=== PATIENT | male | born 1950 | race Hispanic/Latino ===

== ENCOUNTER 2019-03-16 06:35 | Day surgery (SDC) | payer OTHER ==
[2019-03-12 10:36] VITALS: BP 177/89
[2019-03-12 10:40] LABS: BASOPHILS % (AUTO) 0.7 % (0.0-5.0); EOSINOPHILS % (AUTO) 1.5 % (0.0-8.0); HEMATOCRIT 40.7 % (42-54); LYMPHOCYTES % (AUTO) 22.9 % (21.0-51.0); MEAN CORPUSCULAR HEMOGLOBIN 30.8 pg (27.0-33.0); MEAN CORPUSCULAR VOLUME 90.6 fL (79-99); MONOCYTES % (AUTO) 9.6 % (3.0-13.0); NEUTROPHILS % (AUTO) 65.3 % (40.0-77.0); PLATELET COUNT (AUTO) 210 K/uL (130-400); RED BLOOD CELL COUNT(AUTO) 4.49 MIL/uL (4.50-6.20); RED CELL DISTRIBUTION WIDTH 14.1 % (11.0-15.5); WHITE BLOOD COUNT (AUTO) 6.9 K/uL (4.8-10.8)
[2019-03-12 10:46] LABS: CREATININE 0.9 mg/dL (0.5-1.5); POTASSIUM 3.8 mmol/L (3.5-5.1)
[2019-03-16] VITALS (23 sets, daily range): BP systolic 139–238; BP diastolic 62–120
[~2019-03-16] VITALS: Ht 177.8 cm; Wt 141.5 kg
[~2019-03-16 06:35] MED LIST: AEC81 PO; CHLO25TA3 PO; DILT240C50 PO; EMPA25TA PO; ENZA40CA PO; FISH1CAP27 PO; INSU100I35 SQ; LOSA100T58 PO; METF-444 PO; NAPR-1192 PO; NITR0.4T50 SL; PRAV40TA3 PO; RANI150T7 PO; TERA5CAP4 PO; VICTOZA SQ
[2019-03-16] MEDS ORDERED: SODIUM CHLORIDE 0.9% 1000ML 1,000 ML IV ONE (07:19)
[2019-03-16] MEDS: CEFAZOLIN SODIUM 1 GM VIAL ONE ×2 (07:22→09:20)
--- NOTE | 2019-03-16 07:38 | NUR ---
POTENTIAL FOR INFECTION: SHAVED BACK OF LOWER HEAD / NECK PER NAHOMY HURTADO.
[2019-03-16] MEDS ORDERED: CEFAZOLIN 3GM /D5W 100ML 100 ML IV PRN (08:00)
[2019-03-16] MEDS ORDERED: GLYCOPYRROLATE 1 MG/5 ML SYRINGE ONE (09:09)
[2019-03-16] MEDS ORDERED: ONDANSETRON HCL 4 MG/2 ML VIAL ONE (09:09)
[2019-03-16] MEDS ORDERED: NEOSTIGMINE 5MG/5ML SYR IV ONE (09:09)
[2019-03-16] MEDS ORDERED: MIDAZOLAM HCL 1 MG/ML 2ML VIAL ONE (09:09)
[2019-03-16] MEDS ORDERED: PROPOFOL 10 MG/ML 20ML VIAL IV ONE (09:09)
[2019-03-16] MEDS ORDERED: LIDOCAINE PF 2% 5ML ABBOJECT ONE (09:09)
[2019-03-16] MEDS ORDERED: SUCCINYLCHOLINE 200MG/10ML SYR ONE (09:09)
[2019-03-16] MEDS ORDERED: DEXAMETHASONE SOD PHOSPHATE 10MG/ML 1ML VIAL ONE (09:09)
[2019-03-16] MEDS ORDERED: FENTANYL CITRATE PF 50 MCG/1 ML 2ML VIAL ONE (09:09)
[2019-03-16] MEDS ORDERED: ROCURONIUM 10MG/1ML SYR 10 MG/ML ML ONE (09:10)
[2019-03-16] MEDS ORDERED: BUPIVACAINE/PF 0.5% 30ML VIAL ONE (10:07)
[2019-03-16] MEDS ORDERED: LABETALOL HCL 5 MG/ML 20ML VIAL IV ONE (10:52)
[2019-03-16] MEDS ORDERED: RACEPINEPHRINE HCL 2.25% 0.5 ML NEB SOLN ONE (11:19)
[2019-03-16] MEDS ORDERED: IPRATROPIUM/ALBUTEROL SULFATE 3 ML SOLUTION IH ONE (11:46)
== END 2019-03-16 13:11 | disposition home or self-care (01) ==
LOC: DAH 06:35
PROVIDERS: ATTEND Surgery
DX: D17.0 Benign lipomatous neoplasm of skin and subcutaneous tissue of head, face and neck (principal); E11.9 Type 2 diabetes mellitus without complications; I10 Essential (primary) hypertension; I25.10 Atherosclerotic heart disease of native coronary artery without angina pectoris; F17.210 Nicotine dependence, cigarettes, uncomplicated; E66.01 Morbid (severe) obesity due to excess calories; Z68.41 Body mass index [BMI] 40.0-44.9, adult; Z79.899 Other long term (current) drug therapy; Z79.82 Long term (current) use of aspirin; Z79.4 Long term (current) use of insulin; Z98.890 Other specified postprocedural states; Z86.73 Personal history of transient ischemic attack (TIA), and cerebral infarction without residual deficits; Z85.46 Personal history of malignant neoplasm of prostate; Z82.49 Family history of ischemic heart disease and other diseases of the circulatory system; Z83.3 Family history of diabetes mellitus
CPT/HCPCS: 21552; 36415; 80048; 82948 ×2; 85025; 88304; 93005; 94640 ×2; A4452; J0330; J0690; J1100; J2001; J2250; J2405; J2704; J2710; J3010; J3490 ×3; J7030